=== PATIENT | female | born 1955 | race Caucasian/White ===

== ENCOUNTER 2024-11-23 13:41 | Emergency (ER) | payer OTHER ==
[~2024-11-23] VITALS: Ht 172.7 cm; Wt 66.3 kg
--- NOTE | 2024-11-23 13:54 | ECG ---
[facility] Test Date: 2024-11-23 Test Time: 13:45:35 Pat Name: LOGAN APARICIO Department: er Room: Gender: F Operations Engineer: kathrine : 1955 Requested By: EMERGENCY EMERGENCY Order Number: [id number] Reading MD: Anil Mcrae Measurements Intervals Linch Rate: 71 P: 41 [place]: 170 QRS: 56 QRSD: 90 T: 14 QT: 394 QTc: 429 Interpretive Statements Sinus rhythm Anterior infarct, old Electronically Signed On 11-23-2024 15:45:23 PST by Anil Mcrae Please click the below link to view image of tracing.
[2024-11-23] MEDS: LIDOCAINE VISCOUS 2% 15ML UD PO ONE (14:15)
[2024-11-23] MEDS: MAALOX PLUS or MAALOX 30 ML PO ONE (14:15)
[2024-11-23] MEDS: DONNATAL 5ml ORAL Elix (BELLADONNA ALK-PHENOBARB) PO ONE (14:15)
[2024-11-23 14:49] LABS: Basophils # (auto) 0.1 10 ^3/uL (0-0.2); Basophils % (auto) 1.2 % (0.0-2.0); Eosinophils # (auto) 0.1 10 ^3/uL (0-0.8); Eosinophils % (auto) 1.8 % (0.0-7.0); Hematocrit 38.4 % (36.0-46.0); Hemoglobin 12.7 g/dL (12.2-16.2); Lymphocytes % (auto) 18.8 % (10.0-50.0); Mean Corpuscular Hemoglobin 29.9 pg (28.0-32.0); Mean Corpuscular Hgb Conc. 33.1 g/dL (32.0-36.0); Mean Corpuscular Volume 90.3 fL (80.0-100.0); Monocytes # (auto) 0.3 10 ^3/uL (0-1.3); Monocytes % (auto) 5.7 % (0.0-12.0); Neutrophils % (auto) 72.5 % (37.0-80.0); Platelet Count (auto) 208 10^3/uL (140-450); Red Blood Cells 4.25 10^6/uL (4.0-5.20); Red Cell Distribution Width 15.2 % (11.8-14.3); White Blood Cell 5.6 10^3/uL (4.4-10.8)
--- NOTE | 2024-11-23 15:00 | DVH ---
CHEST RADIOGRAPH Indication: cough Technique: Single frontal view of the chest was obtained Comparison: None FINDINGS: Lines and Tubes: Port-A-Cath in place from the right internal jugular vein tip in the superior vena c catrachito. Lungs: Increased density over the lower left lung field may represent breast tissue or pneumonia Pleura: No effusion. No pneumothorax. Cardiomediastinal contours: Unremarkable Bones: No acute osseous abnormality. IMPRESSION: 1. No acute cardiopulmonary disease. 2. Increased tissue over the lower left lung field may represent breast tissue or pneumonia HS:Y
--- NOTE | 2024-11-23 15:06 | DVH ---
CLINICAL INFORMATION: 69 years old, Female; fainting. TECHNIQUE: Axial imaging was obtained through the brain without contrast. Coronal and sagittal refor matted images were obtained, reviewed, and stored. Images were reviewed in brain and bone windows. A ll CT scans at this medical facility are performed using dose modulation techniques as appropriate to a performed exam including the following: Automated exposure control was utilized; adjustment of the MA and/or KV according to patient size; and use of iterative reconstruction technique. CTDIvol = 53.93 mGy DLP = 864.66 mGy-cm COMPARISON: None FINDINGS: There is no acute intracranial hemorrhage or extraaxial fluid collection. No mass effect o r midline shift. The ventricles and sulci are within normal limits in size for age. Basal cisterns a re patent. The calvarium is unremarkable. Paranasal sinuses and mastoid air cells are clear. IMPRESSION: No CT evidence of acute intracranial abnormality.
[2024-11-23 15:07] LABS: INR 1.08 (0.9-1.15); Partial Thromboplastin Time 29.9 SEC (24.5-34.5); Prothrombin Time 11.4 sec (9.3-11.8)
[2024-11-23 15:09] LABS: Albumin 4.6 g/dL (3.2-4.8); Anion Gap 11 (5-15); BUN/Creatinine Ratio 20.7 (10.0-20.0); Calcium 9.8 mg/dL (8.7-10.4); Carbon Dioxide 26 mmol/L (20-31); Chloride 102 mmol/L (98-107); Magnesium 1.9 mg/dL (1.6-2.6); Sodium 139 mmol/L (136-145)
[2024-11-23 15:11] LABS: Bilirubin, Total 0.9 mg/dL (0.2-1.0); Total Protein 6.6 g/dL (5.7-8.2)
[2024-11-23 15:13] LABS: Alanine Aminotransferase 74 U/L (7-40); Alkaline Phosphatase 581 U/L (46-116); Aspartate Aminotransferase 86 U/L (13-40); Blood Urea Nitrogen 29 mg/dL (9-23); Glucose 119 mg/dL (74-106); Potassium 3.3 mmol/L (3.5-5.1)
[2024-11-23] MEDS: SODIUM CHLORIDE 0.9% 1,000 ML IV ONE (15:21)
--- NOTE | 2024-11-23 15:29 | ED.PDOC ---
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 Patient endorses being sent from her cancer treatment session, today, due to being found hypotensive even amidst give IV fluids then, with an initial reported value of 102/69. She also comments on having 5x syncopal episodes within the past week, with most recent one taking place, this morning. She denies having any headache, dizziness, lightheadedness, weakness, fever, chills, nausea, vomiting, or other associated symptoms or modifiers at this time. 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 Family History Family History: Unknown Social History Smoker: Non-Smoker Alcohol: Denies ETOH Use Drugs: Denies Drug Use Lives In: Home Cardiovascular: reports: syncope Hematologic/Lymphatic: reports: others (hypotension ) All Other Systems: Reviewed and Negative (negative unless otherwise stated above or in HPI) Physical Exam General Appearance: No Apparent Distress, Normal HEENT: Normal ENT Inspection, Pharynx Normal, TMs Normal, Other (dry mucus membranes) Neck: Full Range of Motion, Non-Tender, Normal, Normal Inspection Respiratory: Chest Non-Tender, Lungs Clear, No Accessory Muscle Use, No Respiratory Distress, Normal Breath Sounds Cardiovascular: No Edema, No JVD, No Murmur, No Gallop, Normal Peripheral Pulses, Regular Rate/Rhythm Breast Exam: Deferred Gastrointestinal: No Organomegaly, Non Tender, No Pulsatile Mass, Normal Bowel Sounds, Soft Genitalia: Deferred Pelvic: Deferred Rectal: Deferred Extremities: No calf tenderness, Normal capillary refill, Normal inspection, Normal range of motion, Non-tender, No pedal edema Musculoskeletal : Apperance: Normal Neurologic: Alert, 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 Was a procedure done?: No Differential Dx Considerations may include: electrolyte imbalance, dehydration, malnutrition, viral syndrome, URI, vasal vagal response X-Ray, Labs, Meds, VS Vital Signs Date Time Temp Pulse Resp B/P (MAP) Pulse Ox O2 Delivery O2 Flow Rate FiO2 11/23/24 13:52 98.7 72 16 125/69 (87) 98 11/23/24 13:45 71 Lab Test 11/23/24 15:55 11/23/24 14:36 Range/Units Troponin I High Sensitivity Pending < 3 L </=34 ng/L White Blood Count 5.6 4.4-10.8 10^3/uL Red Blood Count 4.25 4.0-5.20 10^6/uL Hemoglobin 12.7 12.2-16.2 g/dL Hematocrit 38.4 36.0-46.0 % Mean Corpuscular Volume 90.3 80.0-100.0 fL Mean Corpuscular Hemoglobin 29.9 28.0-32.0 pg Mean Corpuscular Hemoglobin Concent 33.1 32.0-36.0 g/dL Red Cell Distribution Width 15.2 H 11.8-14.3 % Platelet Count 208 140-450 10^3/uL Mean Platelet Volume 9.3 6.9-10.8 fL Neutrophils (%) (Auto) 72.5 37.0-80.0 % Lymphocytes (%) (Auto) 18.8 10.0-50.0 % Monocytes (%) (Auto) 5.7 0.0-12.0 % Eosinophils (%) (Auto) 1.8 0.0-7.0 % Basophils (%) (Auto) 1.2 0.0-2.0 % Neutrophils # (Auto) 4.0 1.6-8.6 10 ^3/uL Lymphocytes # (Auto) 1.0 0.4-5.4 10 ^3/uL Monocytes # (Auto) 0.3 0-1.3 10 ^3/uL Eosinophils # (Auto) 0.1 0-0.8 10 ^3/uL Basophils # (Auto) 0.1 0-0.2 10 ^3/uL Nucleated Red Blood Cells 0.0 % Prothrombin Time 11.4 9.3-11.8 sec Prothrombin Time INR 1.08 0.9-1.15 Activated Partial Thromboplast Time 29.9 24.5-34.5 SEC D-Dimer, Quantitative 1.99 H 0.0-0.49 mg/L FEU Sodium Level 139 136-145 mmol/L Potassium Level 3.3 L 3.5-5.1 mmol/L Chloride Level 102 98-107 mmol/L Carbon Dioxide Level 26 20-31 mmol/L Anion Gap 11 5-15 Blood Urea Nitrogen 29 H 9-23 mg/dL Creatinine 1.40 H 0.550-1.02 mg/dL Glomerular Filtration Rate Calc 41 >90 mL/min BUN/Creatinine Ratio 20.7 H 10.0-20.0 Serum Glucose 119 H 74-106 mg/dL Calcium Level 9.8 8.7-10.4 mg/dL Magnesium Level 1.9 1.6-2.6 mg/dL Total Bilirubin 0.9 0.2-1.0 mg/dL Aspartate Amino Transferase (AST) 86 H 13-40 U/L Alanine Aminotransferase (ALT) 74 H 7-40 U/L Alkaline Phosphatase 581 H 46-116 U/L B-Type Natriuretic Peptide 12.75 0-100 pg/mL Total Protein 6.6 5.7-8.2 g/dL Albumin 4.6 3.2-4.8 g/dL Current Medications Medications (Trade) Dose Ordered Sig/Bella Route Start Time Stop Time Status Last Admin Belladonna Alkaloids/ Phenobarbital ( Elixir) 10 ml ONCE ONCE PO 11/23/24 14:15 11/23/24 14:17 DC 11/23/24 14:15 Al Hydrox/Mg Hydrox/Simethicone (Maalox Plus) 30 ml ONCE ONCE PO 11/23/24 14:15 11/23/24 14:17 DC 11/23/24 14:15 Lidocaine HCl (Xylocaine 2% Viscous) 15 ml ONCE ONCE PO 11/23/24 14:15 11/23/24 14:17 DC 11/23/24 14:15 [facility] [id number] [facility] [id number] Ph: [phone] DIAGNOSTIC IMAGING Diagnostic Imaging Report : [id number] Signed PATIENT: LOGAN APARICIO ACCT: [id number] UNIT: [id number] : 1955 LOC: ER ROOM / BED: / AGE / SEX: 69 / F ADM STATUS: REG ER SERVICE 12 ORDERING PHYSICIAN: RENEA COREA MD PROCEDURE(s): HWOCT - HEAD WITHOUT CONTRAST REASON: "fainting" ORDER NUMBER(s): [id number], ACCESSION NUMBER(s): [id number] CLINICAL INFORMATION: 69 years old, Female; fainting. TECHNIQUE: Axial imaging was obtained through the brain without contrast. Coronal and sagittal reformatted images were obtained, reviewed, and stored. Images were reviewed in brain and bone windows. All CT scans at this medical facility are performed using dose modulation techniques as appropriate to a performed exam including the following: Automated exposure control was utilized; adjustment of the MA and/or KV according to patient size; and use of iterative reconstruction technique. CTDIvol = 53.93 mGy DLP = 864.66 mGy-cm COMPARISON: None FINDINGS: There is no acute intracranial hemorrhage or extraaxial fluid colle ction. No mass effect or midline shift. The ventricles and sulci are within normal limits in size for age. Basal cisterns are patent. The calvarium is unremarkable. Paranasal sinuses and mastoid air cells are clear. IMPRESSION: No CT evidence of acute intracranial abnormality. ATED BY: DAO FINN DO DICTATED DATE/TIME: 11/23/24 150 SIGNED BY: DAO FINN DO SIGNED DATE/TIME: 11/23/24 150 CC: [place] [id number] Ph: [phone] DIAGNOSTIC IMAGING Diagnostic Imaging Report : [id number] Signed PATIENT: LOGAN APARICIO ACCT: [id number] UNIT: [id number] : 1955 LOC: ER ROOM / BED: / AGE / SEX: 69 / F ADM STATUS: REG ER SERVICE 12 ORDERING PHYSICIAN: RENEA COREA MD PROCEDURE(s): CXRP - CHEST PORTABLE REASON: cough ORDER NUMBER(s): [id number], ACCESSION NUMBER(s): [id number] CHEST RADIOGRAPH Indication: cough Technique: Single frontal view of the chest was obtained Comparison: None FINDINGS: Lines and Tubes: Port-A-Cath in place from the right internal jugular vein tip in the superior vena cava. Lungs: Increased density over the lower left lung field may represent breast tissue or pneumonia Pleura: No effusion. No pneumothorax. Cardiomediastinal contours: Unremarkable Bones: No acute osseous abnormality. IMPRESSION: 1. No acute cardiopulmonary disease. 2. Increased tissue over the lower left lung field may represent breast tissue or pneumonia HS:Y ATED BY: DAQUAN MACARIO Jr., DO DICTATED DATE/TIME: 11/23/241456 SIGNED BY: DAQUAN MACARIO Jr., SIGNED DATE/TIME: 11/23/241456 CC: X-Ray, Labs, Meds, VS Comment This 68-year-old female presents secondary to multiple syncopal episodes last few days. Workup was significant for appears to be left lower lobe pneumonia. I am highly concerned as the patient is currently immunosuppressed on chemotherapy. She was provided with azithromycin Rocephin for community- acquired pneumonia. However, she was likely require further workup management. Patient was also had 5+ episodes of syncope over the last few days. Time of 1ST Reevaluation: 14:45 Reevaluation 1ST: Unchanged Patient Education/Counseling: Diagnosis, Treatment Family Education/Counseling: No Family Present Departure 1 Departure Time of Disposition: 16:22 Impression: Primary Impression: Syncope Additional Impressions: Pneumonia Metastatic cancer Disposition: ADMITTED INPATIENT Admit to: Tele Condition: Serious Critical Care Note Critical Care Time?: No Stability Stability form required: No Heart Score Heart Score: Heart Score Response (Comments) Value History N/A 0 EKG N/A 0 Age N/A 0 Risk Factors N/A 0 Troponin N/A 0 Total 0 I personally scribed for RENEA COREA MD ([email or web address]) on 11/23/24 at 15:29. Electronically submitted by Yung Mike ([email or web address]). I personally scribed for RENEA COREA MD ([email or web address]) on 11/23/24 at 15:40. Electronically submitted by Yung Mike ([email or web address]). RENEA COREA MD Nov 23, 2024 15:29
[2024-11-23] MEDS: cefTRIAXone 1GM/50ML D5W 50 ML IV ONE (16:15)
[2024-11-23] MEDS: AZITHROMYCIN 500MG/ 250ML 250 ML IV ONE (16:15)
[2024-11-23] MEDS ORDERED: LEVO500T91 PO (17:36)
[2024-11-23 17:51] VITALS: BP 117/71; TEMP 98.1
[2024-11-23] MEDS: SODIUM CHLORIDE 0.9% 2,000 ML IV ONE (17:52)
[2024-11-23 18:23] VITALS: PULSE 75; PULSE 80; RESP 18; O2SAT 95; O2SAT 98
--- NOTE | 2024-11-24 13:48 | DVHDS2 ---
New Physician D'charge PN Admitting Diagnosis Admitting Diagnosis hypotension Discharge Diagnosis hypotension, resolved Operations or Procedures none Reason(s) For Hospitalization Surgery Hospital Course 69 F with hx of R renal cell cancer s/p nephrectomy and metastatic dz comes to ER for hypotension. She states she was at her cancer infusion clinic and her BP was noted to be in the 100s systolic and this she was sent to the ER for hypotension. On arrival her BP was 102/72, nml pulse, afebrile and awake and oriented. Her lab data showed nml CBC, nml chemistry panel, negative troponins. Imaging showed a clear CXR and head CT no acute changes. She was given IV NS bolus and her BP responded to 120s systolic. She was observed in the ER with no issues and most rencet SBP is in the 120s. Patient is in no distress and awake and alert with no complaints. SHe will be discharged home with outpt follow up with her PCP via [facility]. Treatment Plan Discharge Condition of Discharge Good Disposition Home Discharge Instructions Diet: Cardiac 2g Na,low cholest Activity: No Restrictions, As Tolerated Medications: see med sheet Follow Up Care Follow Up/Referral: pcp Discharge Statement: "Patient was advised to return to the ER or call 911 if any headaches, dizziness, shortness of breath, chest pain, abdominal pain, bleeding, fevers, or worsening of medical condition. Patient was counseled about treatment plan, medications, possible side effects, patientverbalized understanding. All questions were answered to the best of my ability. This discharge took greater then 30 minutes in planning, reviewing documentation, counseling the patient, and discussing with other team members." FUENTES ZURITA MD Nov 24, 2024 13:48
== END 2024-11-23 18:35 | disposition home or self-care (01) ==
LOC: ER 13:41 → EDBD 13:41 → ER 18:35
DX: R55 Syncope and collapse (principal); J18.9 Pneumonia, unspecified organism; C78.00 Secondary malignant neoplasm of unspecified lung; E78.5 Hyperlipidemia, unspecified; I25.2 Old myocardial infarction; Z85.528 Personal history of other malignant neoplasm of kidney; Z88.1 Allergy status to other antibiotic agents; Z88.5 Allergy status to narcotic agent; Z90.5 Acquired absence of kidney
CPT/HCPCS: 36415; 70450; 71045; 80053; 83735; 83880; 84484; 85025; 85379; 85610; 85730; 93005; 96365; 96366; 96368; 99285; J0456; J0696